=== PATIENT | female | born 1935 | race Two or more races ===

== ENCOUNTER 2016-12-12 08:56 | Emergency (ER) | payer MEDICARE, MEDICAID ==
[~2016-12-12] VITALS: Ht 165.1 cm; Wt 68.0 kg
[~2016-12-12 08:56] MED LIST: FLUO20CA19; PHEN100C70; PLAVIX; RAMI2.5T; SIMV5TAB38
[2016-12-12] MEDS ORDERED: LIDOCAINE 1% HCL (LOCAL ANESTH.) INJ 20ML MDV ONE (09:45)
[2016-12-12 10:09] LABS: Basophils # (auto) 0.1 uL; Basophils % (auto) 0.9 % (0.0-2.0); DEFINITIVE VIEW TRANSMISSION; Eosinophils # (auto) 0 uL; Eosinophils % (auto) 0.2 % (0.0-7.0); Hematocrit 43.5 % (36.0-46.0); Hemoglobin 14.4 g/dL (12.2-16.2); Lymphocytes # (auto) 0.9 uL; Lymphocytes % (auto) 7.7 % (10.0-50.0); Mean Corpuscular Hemoglobin 26.9 pg (28.0-32.0); Mean Corpuscular Hgb Conc. 33.1 g/dL (32.0-36.0); Mean Corpuscular Volume 81.4 fL (80.0-100.0); Mean Platelet Volume 10.1 fL (7.4-10.4); Monocytes # (auto) 0.8 uL; Monocytes % (auto) 7.4 % (0.0-12.0); Neutrophils # (auto) 9.6 uL; Neutrophils % (auto) 83.8 % (37.0-80.0); Platelet Count (auto) 279 10^3/uL (140-450); Red Cell Distribution Width 13.8 % (11.6-16.0); White Blood Cell 11.5 10^3/uL (4.4-10.8)
[2016-12-12] MEDS ORDERED: BACITRACIN TOP OINT 1 UD PKG TOP ONE (10:15)
[2016-12-12] MEDS ORDERED: LIDOCAINE 2%HCL (LOCAL ANESTH.) INJ 20ML MDV ID ONE (10:15)
[2016-12-12] MEDS ORDERED: TETANUS-DIPTH-ACEL PERTUSSIS 0.5ML SYRG IM ONE (10:15)
[2016-12-12 10:30] LABS: Albumin 3.2 g/dL (3.4-5.0); BUN/Creatinine Ratio 12.9; Bilirubin, Total 0.8 mg/dL (0.2-1.0); Calcium 8.8 mg/dL (8.5-10.1); Total Protein 7.5 g/dL (6.4-8.2)
[2016-12-12] MEDS ORDERED: cefTRIAXone 1GM/50ML D5W 50 ML IV ONE (15:15)
[2016-12-12] MEDS ORDERED: LEVOFLOXACIN 500 MG TAB PO ONE (15:45)
[2016-12-12 16:43] VITALS: BP 127/89
== END 2016-12-12 17:20 | disposition home or self-care (01) ==
LOC: EDUNIT# 08:56 → ER 09:01
DX: S01.81XA Laceration without foreign body of other part of head, initial encounter (principal); S01.111A Laceration without foreign body of right eyelid and periocular area, initial encounter; I10 Essential (primary) hypertension; E46 Unspecified protein-calorie malnutrition; Z68.25 Body mass index [BMI] 25.0-25.9, adult; E78.5 Hyperlipidemia, unspecified; N39.0 Urinary tract infection, site not specified; Z23 Encounter for immunization; Z11.9 Encounter for screening for infectious and parasitic diseases, unspecified; Z79.899 Other long term (current) drug therapy; Z86.73 Personal history of transient ischemic attack (TIA), and cerebral infarction without residual deficits; W19.XXXA Unspecified fall, initial encounter; Y99.8 Other external cause status; Y93.89 Activity, other specified; Y92.009 Unspecified place in unspecified non-institutional (private) residence as the place of occurrence of the external cause
CPT/HCPCS: 12013; 36415; 70450; 80053; 81002; 84484; 85025; 90471; 90715; 93005; 99285; J0696; J2001

== ENCOUNTER 2017-09-30 15:03 | Inpatient (IN) | payer MEDICARE, MEDICAID ==
[~2017-09-30] VITALS: Ht 160 cm; Wt 52.3 kg
[2017-09-30] MEDS ORDERED: SODIUM CHLORIDE 0.9% 1,000 ML IV ONE (16:26)
[2017-09-30] MEDS ORDERED: PIPERACILLIN-TAZOB 3.375GM 50 ML IV ONE (16:30)
[2017-09-30 17:09] LABS: Albumin 3.3 g/dL (3.4-5.0); BUN/Creatinine Ratio 15.5; Calcium 8.8 mg/dL (8.5-10.1); Potassium 4.5 mmol/L (3.5-5.1)
[2017-09-30 17:11] LABS: Bilirubin, Total 0.3 mg/dL (0.2-1.0); Total Protein 7.8 g/dL (6.4-8.2)
[2017-09-30 17:40] LABS: Lactic Acid w/Reflex 2.6 mmol/L (0.4-2.0)
[2017-09-30 18:01] LABS: Basophils # (auto) 0.1 uL; Basophils % (auto) 0.8 % (0.0-2.0); Eosinophils # (auto) 0.1 uL; Eosinophils % (auto) 1.1 % (0.0-7.0); Hematocrit 38.9 % (36.0-46.0); Hemoglobin 12.5 g/dL (12.2-16.2); Lymphocytes # (auto) 2.8 uL; Mean Corpuscular Hemoglobin 26.1 pg (28.0-32.0); Mean Corpuscular Hgb Conc. 32.3 g/dL (32.0-36.0); Monocytes # (auto) 0.9 uL; Monocytes % (auto) 9.4 % (0.0-12.0); Neutrophils # (auto) 5.6 uL; Neutrophils % (auto) 58.7 % (37.0-80.0); Nucleated Red Blood Cells % 0.1 %; Platelet Count (auto) 357 10^3/uL (140-450); Red Cell Distribution Width 14.8 % (11.8-14.3); White Blood Cell 9.5 10^3/uL (4.4-10.8)
[2017-09-30 18:31] LABS: Partial Thromboplastin Time 22.7 sec (22.64-33.71)
[2017-09-30 18:38] LABS: INR 0.98 (0.9-1.15); Prothrombin Time 10.7 sec (9.37-12.3)
[2017-09-30] MEDS ORDERED: HYDROcodone-ACET 5/325MG TAB PO PRN (22:15)
[2017-09-30] MEDS ORDERED: ONDANSETRON HCL 4 MG/2 ML VIAL IV PRN (22:15)
[2017-09-30] MEDS ORDERED: TEMAZEPAM 15 MG CAP PO PRN (22:15)
[2017-09-30] MEDS ORDERED: ALBUTEROL SULF 2.5 MG/0.5ML(0.5%) NEB SOLN NEB PRN (22:15)
[2017-09-30] MEDS ORDERED: DEXTROSE (50%) 50ML SYRG IV PRN (22:15)
[2017-09-30] MEDS ORDERED: cloNIDine HCL 0.1 MG TAB PO PRN (22:15)
[2017-09-30] MEDS ORDERED: FUROSEMIDE 40 MG/4 ML VIAL IV ONE (22:15)
[2017-09-30] MEDS ORDERED: ACETAMINOPHEN 325 MG TAB PO PRN (22:15)
[2017-09-30] MEDS ORDERED: MORPHINE SULFATE 4 MG/ML SYR/VIAL IV PRN (22:15)
[2017-10-01] VITALS (9 sets, daily range): BP systolic 101–131; BP diastolic 53–59
[2017-10-01] MEDS: NITROGLYCERIN 0.4 MG SL TAB SL PRN ×3 (02:42→02:55)
[2017-10-01] MEDS ORDERED: MORPHINE SULF INJ 2 MG/ML SYRINGE 1ML ONE (03:10)
[2017-10-01] MEDS: InsuLIN REG 1unit/0.01ml Soln (100units/ml) SC SCH ×4 (06:00→18:43)
[2017-10-01] MEDS: ACCU-CHEK COMFORT CURVE STRIP VI SCH ×4 (06:01→18:00)
[2017-10-01 06:21] LABS: Basophils # (auto) 0.1 uL; Eosinophils # (auto) 0.1 uL; Eosinophils % (auto) 0.8 % (0.0-7.0); Neutrophils # (auto) 7.6 uL
[2017-10-01 06:24] LABS: Basophils % (auto) 1.2 % (0.0-2.0); Hematocrit 39.5 % (36.0-46.0); Hemoglobin 12.8 g/dL (12.2-16.2); Lymphocytes # (auto) 1.2 uL; Lymphocytes % (auto) 12.5 % (10.0-50.0); Mean Corpuscular Hemoglobin 26.5 pg (28.0-32.0); Mean Corpuscular Hgb Conc. 32.5 g/dL (32.0-36.0); Mean Corpuscular Volume 81.4 fL (80.0-100.0); Monocytes # (auto) 0.8 uL; Monocytes % (auto) 8.1 % (0.0-12.0); Neutrophils % (auto) 77.4 % (37.0-80.0); Platelet Count (auto) 353 10^3/uL (140-450); Red Blood Cells 4.85 10^6/uL (4.0-5.20); Red Cell Distribution Width 14.3 % (11.8-14.3); White Blood Cell 9.9 10^3/uL (4.4-10.8)
[2017-10-01 06:45] LABS: Albumin 3.1 g/dL (3.4-5.0); BUN/Creatinine Ratio 15.5; Bilirubin, Total 0.6 mg/dL (0.2-1.0); Calcium 8.3 mg/dL (8.5-10.1); Potassium 3.8 mmol/L (3.5-5.1); Total Protein 7.3 g/dL (6.4-8.2)
[2017-10-01] MEDS: cefTRIAXone 1GM/10ml IVPUSH 10 ML IV SCH (09:44)
[2017-10-01] MEDS: CLOPIDOGREL BISULFATE 75 MG TAB PO SCH (09:44)
[2017-10-01] MEDS: FAMOTIDINE 20 MG TAB PO SCH ×2 (09:45→21:55)
[2017-10-01] MEDS: LISINOPRIL 10 MG TAB PO SCH (09:46)
[2017-10-01] MEDS: CARVEDILOL 3.125 MG TAB PO SCH ×2 (09:48→21:55)
[2017-10-01] MEDS ORDERED: ENOXAPARIN SOD 40 MG/0.4 ML SYRINGE SC SCH (10:00)
[2017-10-01] MEDS ORDERED: FUROSEMIDE 20 MG TAB PO SCH (10:00)
[2017-10-01] MEDS ORDERED: FUROSEMIDE 20 MG/2 ML VIAL IV ONE (13:00)
[2017-10-01] MEDS ORDERED: POTASSIUM CHL 10% (20 MEQ/15ML) 15ml ORAL SOLN PO ONE (13:00)
[2017-10-01] MEDS ORDERED: MORPHINE SULF INJ 2 MG/ML SYRINGE 1ML IV PRN (13:15)
[2017-10-01] MEDS: ATORVASTATIN 20 MG TAB PO SCH (21:55)
[2017-10-02] MEDS: ACCU-CHEK COMFORT CURVE STRIP VI SCH ×5 (00:51→23:59)
[2017-10-02 04:56] VITALS: BP 110/88
[2017-10-02] MEDS: InsuLIN REG 1unit/0.01ml Soln (100units/ml) SC SCH ×5 (06:00→23:59)
[2017-10-02 06:25] LABS: BUN/Creatinine Ratio 21.8; Calcium 8.8 mg/dL (8.5-10.1)
[2017-10-02 08:36] VITALS: BP 120/57
[2017-10-02] MEDS: FAMOTIDINE 20 MG TAB PO SCH ×2 (09:27→22:10)
[2017-10-02] MEDS: CARVEDILOL 3.125 MG TAB PO SCH ×2 (09:28→22:00)
[2017-10-02] MEDS: LISINOPRIL 10 MG TAB PO SCH (09:28)
[2017-10-02] MEDS: CLOPIDOGREL BISULFATE 75 MG TAB PO SCH (09:29)
[2017-10-02] MEDS: POTASSIUM CHL 10% (20 MEQ/15ML) 15ml ORAL SOLN PO SCH (09:30)
[2017-10-02] MEDS: cefTRIAXone 1GM/10ml IVPUSH 10 ML IV SCH (09:31)
[2017-10-02] MEDS ORDERED: FUROSEMIDE 20 MG/2 ML VIAL IV SCH (10:00)
[2017-10-02 12:28] VITALS: BP 117/65
[2017-10-02 17:19] VITALS: BP 124/64
[2017-10-02 20:00] VITALS: BP 127/76
[2017-10-02] MEDS: ATORVASTATIN 20 MG TAB PO SCH (22:10)
[2017-10-02] MEDS: ASCORBIC ACID 500 MG TAB PO SCH (22:10)
[2017-10-02 22:22] VITALS: BP 127/76
[2017-10-03] VITALS (7 sets, daily range): BP systolic 107–132; BP diastolic 50–75
[2017-10-03] MEDS: InsuLIN REG 1unit/0.01ml Soln (100units/ml) SC SCH ×3 (06:00→17:34)
[2017-10-03] MEDS: ACCU-CHEK COMFORT CURVE STRIP VI SCH ×3 (06:26→17:34)
[2017-10-03] MEDS: cefTRIAXone 1GM/10ml IVPUSH 10 ML IV SCH (08:51)
[2017-10-03] MEDS: FAMOTIDINE 20 MG TAB PO SCH ×2 (08:51→22:20)
[2017-10-03] MEDS: CLOPIDOGREL BISULFATE 75 MG TAB PO SCH (08:51)
[2017-10-03] MEDS: ASCORBIC ACID 500 MG TAB PO SCH ×2 (08:52→22:20)
[2017-10-03] MEDS: MULTIPLE VITAMINS W/ MINERALS TAB PO SCH (08:52)
[2017-10-03] MEDS: LISINOPRIL 10 MG TAB PO SCH (08:52)
[2017-10-03] MEDS: FUROSEMIDE 40 MG TAB PO SCH (08:53)
[2017-10-03] MEDS: CARVEDILOL 3.125 MG TAB PO SCH ×2 (08:54→22:00)
[2017-10-03] MEDS: POTASSIUM CHL 10% (20 MEQ/15ML) 15ml ORAL SOLN PO SCH (08:55)
[2017-10-03] MEDS: ATORVASTATIN 20 MG TAB PO SCH (22:20)
[2017-10-04] VITALS (7 sets, daily range): BP systolic 107–140; BP diastolic 60–79
[2017-10-04] MEDS: InsuLIN REG 1unit/0.01ml Soln (100units/ml) SC SCH ×4 (06:00→19:00)
[2017-10-04] MEDS: ACCU-CHEK COMFORT CURVE STRIP VI SCH ×4 (06:00→18:00)
[2017-10-04 07:02] LABS: INR 0.96 (0.9-1.15); Partial Thromboplastin Time 28.1 sec (22.64-33.71); Prothrombin Time 10.5 sec (9.37-12.3)
[2017-10-04] MEDS: cefTRIAXone 1GM/10ml IVPUSH 10 ML IV SCH (09:00)
[2017-10-04] MEDS: MULTIPLE VITAMINS W/ MINERALS TAB PO SCH (10:00)
[2017-10-04] MEDS: POTASSIUM CHL 10% (20 MEQ/15ML) 15ml ORAL SOLN PO SCH (10:00)
[2017-10-04] MEDS: FAMOTIDINE 20 MG TAB PO SCH ×2 (10:00→22:19)
[2017-10-04] MEDS: ASCORBIC ACID 500 MG TAB PO SCH ×2 (10:00→22:18)
[2017-10-04] MEDS: CLOPIDOGREL BISULFATE 75 MG TAB PO SCH (10:00)
[2017-10-04] MEDS: LISINOPRIL 10 MG TAB PO SCH (10:00)
[2017-10-04] MEDS: CARVEDILOL 3.125 MG TAB PO SCH ×2 (10:00→22:20)
[2017-10-04] MEDS: FUROSEMIDE 40 MG TAB PO SCH (10:00)
[2017-10-04] MEDS ORDERED: IOHEXOL 350 MG/ML 100ML IJ ONE (10:30)
[2017-10-04] MEDS ORDERED: LIDOCAINE 2%HCL (LOCAL ANESTH.) INJ 20ML MDV ONE (10:30)
[2017-10-04] MEDS ORDERED: ANGIOMAX 250 MG VIAL IV ONE (11:04)
[2017-10-04] MEDS ORDERED: MIDAZOLAM HCL 1MG/1ML-2 ML VIAL ONE (11:05)
[2017-10-04] MEDS ORDERED: fentaNYL CITRATE 100 MCG/2 ML VL ONE (11:05)
[2017-10-04] MEDS ORDERED: IODIXANOL 320MG/ML 100ML BTL IV ONE (11:09)
[2017-10-04] MEDS ORDERED: diphenhdrAMINE HCL 50 MG/1 ML VL ONE (12:28)
[2017-10-04] MEDS ORDERED: NALOXONE HCL 0.4 MG/ML VIAL ONE (12:52)
[2017-10-04] MEDS ORDERED: FLUMAZENIL 0.1 MG/ML INJ 10ML MDV IV ONE (12:53)
[2017-10-04] MEDS: ATORVASTATIN 20 MG TAB PO SCH (22:18)
[2017-10-05] VITALS (7 sets, daily range): BP systolic 112–142; BP diastolic 54–83
[2017-10-05] MEDS: ACCU-CHEK COMFORT CURVE STRIP VI SCH ×3 (06:00→11:51)
[2017-10-05] MEDS: InsuLIN REG 1unit/0.01ml Soln (100units/ml) SC SCH ×3 (06:00→11:51)
[2017-10-05] MEDS: MULTIPLE VITAMINS W/ MINERALS TAB PO SCH (09:34)
[2017-10-05] MEDS: cefTRIAXone 1GM/10ml IVPUSH 10 ML IV SCH (09:34)
[2017-10-05] MEDS: ASCORBIC ACID 500 MG TAB PO SCH ×2 (09:35→22:24)
[2017-10-05] MEDS: CLOPIDOGREL BISULFATE 75 MG TAB PO SCH (09:35)
[2017-10-05] MEDS: FUROSEMIDE 40 MG TAB PO SCH (09:35)
[2017-10-05] MEDS: FAMOTIDINE 20 MG TAB PO SCH ×2 (09:35→22:24)
[2017-10-05] MEDS: POTASSIUM CHL 10% (20 MEQ/15ML) 15ml ORAL SOLN PO SCH (09:35)
[2017-10-05] MEDS: LISINOPRIL 10 MG TAB PO SCH (09:36)
[2017-10-05] MEDS: CARVEDILOL 3.125 MG TAB PO SCH ×2 (09:36→22:32)
[2017-10-05] MEDS: ATORVASTATIN 20 MG TAB PO SCH (22:24)
[2017-10-06 06:02] VITALS: BP 119/58
[2017-10-06 06:57] LABS: Basophils # (auto) 0.1 uL; Eosinophils # (auto) 0.3 uL; Hemoglobin 12.3 g/dL (12.2-16.2); Lymphocytes # (auto) 1.9 uL; Neutrophils % (auto) 57.1 % (37.0-80.0)
[2017-10-06 07:00] LABS: Basophils % (auto) 0.8 % (0.0-2.0); Eosinophils % (auto) 4.3 % (0.0-7.0); Hematocrit 37.7 % (36.0-46.0); Lymphocytes % (auto) 26.1 % (10.0-50.0); Mean Corpuscular Hemoglobin 26.7 pg (28.0-32.0); Mean Corpuscular Hgb Conc. 32.7 g/dL (32.0-36.0); Mean Corpuscular Volume 81.5 fL (80.0-100.0); Monocytes # (auto) 0.9 uL; Monocytes % (auto) 11.7 % (0.0-12.0); Neutrophils # (auto) 4.3 uL; Platelet Count (auto) 351 10^3/uL (140-450); Red Blood Cells 4.62 10^6/uL (4.0-5.20); Red Cell Distribution Width 14.4 % (11.8-14.3); White Blood Cell 7.5 10^3/uL (4.4-10.8)
[2017-10-06 07:45] LABS: Potassium 4.3 mmol/L (3.5-5.1)
[2017-10-06 07:46] LABS: BUN/Creatinine Ratio 22.9; Calcium 8.6 mg/dL (8.5-10.1)
[2017-10-06 07:58] VITALS: BP 109/51
[2017-10-06] MEDS ORDERED: LISINOPRIL 5 MG TAB PO SCH (10:00)
[2017-10-06] MEDS: CLOPIDOGREL BISULFATE 75 MG TAB PO SCH (10:17)
[2017-10-06] MEDS: CARVEDILOL 3.125 MG TAB PO SCH (10:17)
[2017-10-06] MEDS: MULTIPLE VITAMINS W/ MINERALS TAB PO SCH (10:18)
[2017-10-06] MEDS: ASCORBIC ACID 500 MG TAB PO SCH (10:18)
[2017-10-06] MEDS: FAMOTIDINE 20 MG TAB PO SCH (10:18)
[2017-10-06] MEDS: FUROSEMIDE 40 MG TAB PO SCH (10:18)
[2017-10-06] MEDS: POTASSIUM CHL 10% (20 MEQ/15ML) 15ml ORAL SOLN PO SCH (10:18)
[2017-10-06] MEDS: cefTRIAXone 1GM/10ml IVPUSH 10 ML IV SCH (10:19)
[2017-10-06 11:51] VITALS: BP 103/68
[2017-10-06 16:52] VITALS: BP 134/61
[2017-10-07] MEDS ORDERED: ASPirin 81 mg TAB PO SCH (10:00)
== END 2017-10-06 18:30 | disposition home or self-care (01) | DRG 175 ==
LOC: EDUNIT# 15:03 → EDBD 15:03 → ER 15:03 → TELE 15:04 → TELE-EAST 22:30 → EAST 23:22 → TELE-EAST 23:42 → EAST 10-01 23:06
PROVIDERS: ADMIT Nurse Practitioner; ATTEND Internal Medicine
PROC: 027034Z Dilation of Coronary Artery, One Artery with Drug-eluting Intraluminal Device, Percutaneous Approach (ICD-10-PCS; principal; 2017-10-04)
PROC: 4A023N7 Measurement of Cardiac Sampling and Pressure, Left Heart, Percutaneous Approach (ICD-10-PCS; 2017-10-04)
PROC: B2111ZZ Fluoroscopy of Multiple Coronary Arteries using Low Osmolar Contrast (ICD-10-PCS; 2017-10-04)
PROC: B2151ZZ Fluoroscopy of Left Heart using Low Osmolar Contrast (ICD-10-PCS; 2017-10-04)
PROC: 02703ZZ Dilation of Coronary Artery, One Artery, Percutaneous Approach (ICD-10-PCS; 2017-10-04)
DX: T82.855A Stenosis of coronary artery stent, initial encounter (principal); I50.43 Acute on chronic combined systolic (congestive) and diastolic (congestive) heart failure; E46 Unspecified protein-calorie malnutrition; R06.03 Acute respiratory distress; I42.0 Dilated cardiomyopathy; E11.22 Type 2 diabetes mellitus with diabetic chronic kidney disease; F03.90 Unspecified dementia, unspecified severity, without behavioral disturbance, psychotic disturbance, mood disturbance, and anxiety; I13.0 Hypertensive heart and chronic kidney disease with heart failure and stage 1 through stage 4 chronic kidney disease, or unspecified chronic kidney disease; N18.9 Chronic kidney disease, unspecified; E78.5 Hyperlipidemia, unspecified; J44.9 Chronic obstructive pulmonary disease, unspecified; Y83.8 Other surgical procedures as the cause of abnormal reaction of the patient, or of later complication, without mention of misadventure at the time of the procedure; E11.9 Type 2 diabetes mellitus without complications; I25.110 Atherosclerotic heart disease of native coronary artery with unstable angina pectoris; Z99.81 Dependence on supplemental oxygen; Y92.89 Other specified places as the place of occurrence of the external cause; Z86.73 Personal history of transient ischemic attack (TIA), and cerebral infarction without residual deficits; Z95.5 Presence of coronary angioplasty implant and graft; Z83.3 Family history of diabetes mellitus; Z93.1 Gastrostomy status; Z68.20 Body mass index [BMI] 20.0-20.9, adult; Z82.49 Family history of ischemic heart disease and other diseases of the circulatory system
CPT/HCPCS: 36415; 71045; 80048; 80053; 82962; 83605; 83880; 84484; 85025; 85610; 85730; 86850; 86900; 86901; 87040; 92920; 92928; 93005; 93306; 93458; 96365; 96375; 97110; 97163; 97530; 99152; C1874; J2250; J2543; Q9967

== ENCOUNTER 2018-07-17 16:52 | Inpatient (IN) | payer MEDICARE, MEDICAID ==
[~2018-07-17] VITALS: Ht 165.1 cm; Wt 41.3 kg
[~2018-07-17 16:52] MED LIST changes: -PLAVIX; +PLAVIX PO
[2018-07-17] MEDS ORDERED: SODIUM CHLORIDE 0.9% 1,000 ML IV ONE (16:57)
[2018-07-17 18:37] LABS: Urine Bacteria MOD /hpf (None Seen); Urine Blood Negative /uL (Negative); Urine Hyaline Cast FEW /lpf (0 - 2); Urine Mucus FEW (None Seen); Urine Specific Gravity 1.014 (1.001-1.035); Urine WBC 8 /hpf (0 - 5)
[2018-07-17 19:05] LABS: Basophils # (auto) 0.1 uL; Basophils % (auto) 1.3 % (0.0-2.0); Eosinophils # (auto) 0.1 uL; Eosinophils % (auto) 1.5 % (0.0-7.0); Hematocrit 36.4 % (36.0-46.0); Hemoglobin 11.7 g/dL (12.2-16.2); Lymphocytes # (auto) 1.5 uL; Mean Corpuscular Hemoglobin 25.7 pg (28.0-32.0); Mean Corpuscular Hgb Conc. 32.1 g/dL (32.0-36.0); Monocytes # (auto) 0.5 uL; Monocytes % (auto) 9.4 % (0.0-12.0); Neutrophils # (auto) 3.6 uL; Neutrophils % (auto) 61.8 % (37.0-80.0); Platelet Count (auto) 252 10^3/uL (140-450); Red Blood Cells 4.55 10^6/uL (4.0-5.20); Red Cell Distribution Width 16.3 % (11.8-14.3); White Blood Cell 5.8 10^3/uL (4.4-10.8)
[2018-07-17 19:31] LABS: INR 0.97 (0.9-1.15); Partial Thromboplastin Time 26.2 sec (23.78-33.04); Prothrombin Time 10.4 sec (9.27-12.13)
[2018-07-17 19:37] LABS: Alanine Aminotransferase 12 U/L (13-56); Albumin 2.9 g/dL (3.4-5.0); Anion Gap 7 (5-15); Aspartate Aminotransferase 13 U/L (15-37); Blood Urea Nitrogen 17 mg/dL (7-18); Calcium 8.5 mg/dL (8.5-10.1); Carbon Dioxide 25 mmol/L (21-32); Chloride 108 mmol/L (98-107); Glucose 89 mg/dL (74-106); Magnesium 2.2 mg/dL (1.6-2.6); Potassium 3.9 mmol/L (3.5-5.1); Sodium 140 mmol/L (136-145)
[2018-07-17 19:42] LABS: Alkaline Phosphatase 48 U/L (45-117); Bilirubin, Total 0.4 mg/dL (0.2-1.0); GFR African American 64 mL/min; GFR Non-African American 53 mL/min; Total Protein 6.9 g/dL (6.4-8.2)
[2018-07-17] MEDS ORDERED: MORPHINE SULFATE 4 MG/ML SYR/VIAL IV PRN (20:45)
[2018-07-17] MEDS ORDERED: NITROGLYCERIN 0.4 MG SL TAB SL PRN (20:45)
[2018-07-17] MEDS ORDERED: HYDROcodone-ACET 5/325MG TAB PO PRN (20:45)
[2018-07-17] MEDS ORDERED: cefTRIAXone 1GM/50ML D5W 50 ML IV ONE (20:45)
[2018-07-17] MEDS ORDERED: ONDANSETRON HCL 4 MG/2 ML VIAL IV PRN (20:45)
[2018-07-17] MEDS ORDERED: ACETAMINOPHEN 325 MG TAB PO PRN (20:45)
[2018-07-17] MEDS: FAMOTIDINE 20 MG TAB PO SCH (21:25)
[2018-07-17] MEDS: ATORVASTATIN 20 MG TAB PO SCH (21:25)
[2018-07-18 07:49] LABS: Basophils # (auto) 0.1 uL; Eosinophils # (auto) 0.1 uL; Lymphocytes # (auto) 1.5 uL; Monocytes # (auto) 0.6 uL; White Blood Cell 6.5 10^3/uL (4.4-10.8)
[2018-07-18 07:51] LABS: Eosinophils % (auto) 1.8 % (0.0-7.0); Hematocrit 36.3 % (36.0-46.0); Hemoglobin 11.7 g/dL (12.2-16.2); Lymphocytes % (auto) 23.4 % (10.0-50.0); Mean Corpuscular Hgb Conc. 32.3 g/dL (32.0-36.0); Mean Corpuscular Volume 80.6 fL (80.0-100.0); Monocytes % (auto) 8.8 % (0.0-12.0); Neutrophils # (auto) 4.2 uL; Platelet Count (auto) 257 10^3/uL (140-450); Red Cell Distribution Width 16.4 % (11.8-14.3)
[2018-07-18 08:22] LABS: Albumin 2.7 g/dL (3.4-5.0); Calcium 8.3 mg/dL (8.5-10.1); Potassium 3.8 mmol/L (3.5-5.1)
[2018-07-18 08:25] LABS: BUN/Creatinine Ratio 21.1; Bilirubin, Total 0.3 mg/dL (0.2-1.0); Total Protein 6.7 g/dL (6.4-8.2)
[2018-07-18 08:50] VITALS: BP 163/101
[2018-07-18 09:00] VITALS: BP 163/101
[2018-07-18] MEDS: cefTRIAXone 1GM/50ML D5W 50 ML IV SCH (09:00)
[2018-07-18] MEDS ORDERED: RAMIPRIL 2.5 MG CAP PO SCH (10:00)
[2018-07-18] MEDS: PHENYTOIN 100 MG/4 ML SUSP PO SCH (10:27)
[2018-07-18] MEDS: CLOPIDOGREL BISULFATE 75 MG TAB PO SCH (10:28)
[2018-07-18] MEDS: ASPirin 81 mg TAB PO SCH (10:28)
[2018-07-18] MEDS: FLUoxetine HCL 20 MG CAP PO SCH (10:28)
[2018-07-18] MEDS: FAMOTIDINE 20 MG TAB PO SCH ×2 (10:29→22:07)
[2018-07-18] MEDS: ENOXAPARIN SOD 40 MG/0.4 ML SYRINGE SC SCH (10:30)
[2018-07-18 13:00] VITALS: BP 150/70
[2018-07-18] MEDS ORDERED: POTA10TA51 PO (15:11)
[2018-07-18] MEDS ORDERED: LISI-275 PO (15:11)
[2018-07-18 17:00] VITALS: BP 179/76
[2018-07-18] MEDS ORDERED: LOSARTAN POTASSIUM 50 MG TAB PO ONE (19:15)
[2018-07-18 22:00] VITALS: BP 159/86
[2018-07-18] MEDS: CARVEDILOL 3.125 MG TAB PO SCH (22:00)
[2018-07-18] MEDS: RAMIPRIL 2.5 MG CAP PO SCH (22:09)
[2018-07-18] MEDS: ATORVASTATIN 20 MG TAB PO SCH (22:09)
[2018-07-18] MEDS: TEMAZEPAM 15 MG CAP PO PRN (22:11)
[2018-07-19] MEDS ORDERED: diphenhdrAMINE HCL 25 MG CAP PO ONE (01:20)
[2018-07-19] MEDS: LORazepam 0.5 MG TAB PO PRN ×2 (01:45→14:53)
[2018-07-19 04:51] VITALS: BP 165/76
[2018-07-19 05:59] LABS: Eosinophils # (auto) 0.2 uL; Eosinophils % (auto) 2.7 % (0.0-7.0); Lymphocytes # (auto) 1.8 uL; Mean Corpuscular Volume 79.4 fL (80.0-100.0)
[2018-07-19 06:03] LABS: Basophils # (auto) 0 uL; Basophils % (auto) 0.3 % (0.0-2.0); Hematocrit 38.9 % (36.0-46.0); Hemoglobin 12.8 g/dL (12.2-16.2); Lymphocytes % (auto) 20.6 % (10.0-50.0); Mean Corpuscular Hgb Conc. 32.8 g/dL (32.0-36.0); Monocytes % (auto) 10.9 % (0.0-12.0); Neutrophils # (auto) 5.8 uL; Neutrophils % (auto) 65.5 % (37.0-80.0); Platelet Count (auto) 291 10^3/uL (140-450); Red Cell Distribution Width 16.1 % (11.8-14.3); White Blood Cell 8.9 10^3/uL (4.4-10.8)
[2018-07-19 06:18] LABS: Mean Corpuscular Hemoglobin 26.2 pg (28.0-32.0)
[2018-07-19 06:20] LABS: Calcium 8.6 mg/dL (8.5-10.1); Potassium 3.7 mmol/L (3.5-5.1)
[2018-07-19 06:22] LABS: BUN/Creatinine Ratio 18.4
[2018-07-19 09:00] VITALS: BP 137/71
[2018-07-19] MEDS: cefTRIAXone 1GM/50ML D5W 50 ML IV SCH (09:00)
[2018-07-19] MEDS: RAMIPRIL 2.5 MG CAP PO SCH ×2 (10:00→23:00)
[2018-07-19] MEDS: ASPirin 81 mg TAB PO SCH (10:00)
[2018-07-19] MEDS: CARVEDILOL 3.125 MG TAB PO SCH ×2 (10:00→23:00)
[2018-07-19] MEDS: PHENYTOIN 100 MG/4 ML SUSP PO SCH (10:00)
[2018-07-19] MEDS: amLODIPine BESYLATE 5 MG TAB PO SCH (10:50)
[2018-07-19] MEDS: FAMOTIDINE 20 MG TAB PO SCH ×2 (10:51→23:00)
[2018-07-19] MEDS: CLOPIDOGREL BISULFATE 75 MG TAB PO SCH (10:51)
[2018-07-19] MEDS: FLUoxetine HCL 20 MG CAP PO SCH (10:51)
[2018-07-19] MEDS: ENOXAPARIN SOD 40 MG/0.4 ML SYRINGE SC SCH (10:52)
[2018-07-19 13:00] VITALS: BP 158/70
[2018-07-19 17:00] VITALS: BP 136/56
[2018-07-19 20:36] VITALS: BP 114/46
[2018-07-19] MEDS: ATORVASTATIN 20 MG TAB PO SCH (23:00)
[2018-07-20 04:52] VITALS: BP 110/55
[2018-07-20 05:41] LABS: Basophils # (auto) 0.1 uL; Eosinophils # (auto) 0.4 uL; Hematocrit 36.5 % (36.0-46.0); Hemoglobin 11.9 g/dL (12.2-16.2); Lymphocytes # (auto) 1.8 uL; Mean Corpuscular Hgb Conc. 32.6 g/dL (32.0-36.0); Monocytes # (auto) 0.9 uL; Red Cell Distribution Width 16.5 % (11.8-14.3); White Blood Cell 9.1 10^3/uL (4.4-10.8)
[2018-07-20 05:45] LABS: Basophils % (auto) 0.8 % (0.0-2.0); Eosinophils % (auto) 4.2 % (0.0-7.0); Lymphocytes % (auto) 19.9 % (10.0-50.0); Mean Corpuscular Volume 79.4 fL (80.0-100.0); Monocytes % (auto) 9.9 % (0.0-12.0); Neutrophils # (auto) 5.9 uL; Neutrophils % (auto) 65.2 % (37.0-80.0)
[2018-07-20 05:47] LABS: Platelet Count (auto) 281 10^3/uL (140-450)
[2018-07-20 06:00] LABS: BUN/Creatinine Ratio 17.9; Calcium 8.4 mg/dL (8.5-10.1); Potassium 3.8 mmol/L (3.5-5.1)
[2018-07-20] MEDS: cefTRIAXone 1GM/50ML D5W 50 ML IV SCH (08:41)
[2018-07-20 09:01] VITALS: BP 121/46
[2018-07-20] MEDS: FAMOTIDINE 20 MG TAB PO SCH ×2 (11:35→22:10)
[2018-07-20] MEDS: ASPirin 81 mg TAB PO SCH (11:35)
[2018-07-20] MEDS: CLOPIDOGREL BISULFATE 75 MG TAB PO SCH (11:35)
[2018-07-20] MEDS: CARVEDILOL 3.125 MG TAB PO SCH ×2 (11:37→22:09)
[2018-07-20] MEDS: amLODIPine BESYLATE 5 MG TAB PO SCH (11:38)
[2018-07-20] MEDS: FLUoxetine HCL 20 MG CAP PO SCH (11:38)
[2018-07-20] MEDS: RAMIPRIL 2.5 MG CAP PO SCH ×2 (11:38→22:10)
[2018-07-20] MEDS: PHENYTOIN 100 MG/4 ML SUSP PO SCH (11:38)
[2018-07-20] MEDS: ENOXAPARIN SOD 40 MG/0.4 ML SYRINGE SC SCH (11:39)
[2018-07-20] MEDS ORDERED: ISOSORBIDE MONONITRATE 60 MG TAB PO SCH (12:00)
[2018-07-20] MEDS ORDERED: PATIENTS OWN MEDICATION PO SCH (12:00)
[2018-07-20 13:00] VITALS: BP 64/30
[2018-07-20] MEDS ORDERED: SODIUM CHLORIDE 0.9% 500 ML IV ONE (14:45)
[2018-07-20 17:11] VITALS: BP 95/46
[2018-07-20 21:39] VITALS: BP 126/45
[2018-07-20] MEDS ORDERED: RANOLAZINE ER 500 MG TAB PO SCH (22:00)
[2018-07-20] MEDS: TEMAZEPAM 15 MG CAP PO PRN (22:10)
[2018-07-20] MEDS: ATORVASTATIN 20 MG TAB PO SCH (22:10)
[2018-07-21 04:42] VITALS: BP 117/55
[2018-07-21 06:26] LABS: Eosinophils # (auto) 0.4 uL; Monocytes # (auto) 0.8 uL; Neutrophils # (auto) 3.6 uL; Red Cell Distribution Width 16.3 % (11.8-14.3)
[2018-07-21 06:28] LABS: Basophils # (auto) 0.1 uL; Eosinophils % (auto) 6.2 % (0.0-7.0); Hemoglobin 10.9 g/dL (12.2-16.2); Lymphocytes # (auto) 2.1 uL; Lymphocytes % (auto) 29.4 % (10.0-50.0); Mean Corpuscular Hgb Conc. 32.1 g/dL (32.0-36.0); Mean Corpuscular Volume 80.4 fL (80.0-100.0); Monocytes % (auto) 11.9 % (0.0-12.0); Neutrophils % (auto) 51.5 % (37.0-80.0); Nucleated Red Blood Cells % 0.1 %; Platelet Count (auto) 272 10^3/uL (140-450); Red Blood Cells 4.22 10^6/uL (4.0-5.20)
[2018-07-21 06:31] LABS: Mean Corpuscular Hemoglobin 25.9 pg (28.0-32.0)
[2018-07-21 06:45] LABS: Calcium 8.1 mg/dL (8.5-10.1); Potassium 3.8 mmol/L (3.5-5.1)
[2018-07-21 06:46] LABS: BUN/Creatinine Ratio 16.3
[2018-07-21 08:00] VITALS: BP 131/57
[2018-07-21] MEDS: PHENYTOIN 100 MG/4 ML SUSP PO SCH (09:52)
[2018-07-21] MEDS: ENOXAPARIN SOD 40 MG/0.4 ML SYRINGE SC SCH (09:52)
[2018-07-21] MEDS: CLOPIDOGREL BISULFATE 75 MG TAB PO SCH (09:52)
[2018-07-21] MEDS: ASPirin 81 mg TAB PO SCH (09:54)
[2018-07-21] MEDS: FAMOTIDINE 20 MG TAB PO SCH (09:54)
[2018-07-21] MEDS: amLODIPine BESYLATE 5 MG TAB PO SCH (09:55)
[2018-07-21] MEDS: FLUoxetine HCL 20 MG CAP PO SCH (09:55)
[2018-07-21] MEDS: CARVEDILOL 3.125 MG TAB PO SCH (09:55)
[2018-07-21] MEDS ORDERED: RAMIPRIL 2.5 MG CAP PO SCH (10:15)
[2018-07-21 11:49] VITALS: BP 131/57
== END 2018-07-21 15:20 | disposition home or self-care (01) | DRG 198 ==
LOC: EDBD 16:52 → ER 16:52 → TELE 16:53 → TELE-EAST 07-18 08:47 → TELE-CENTR 07-21 04:15
PROVIDERS: ADMIT Nurse Practitioner; ATTEND Internal Medicine
DX: I25.10 Atherosclerotic heart disease of native coronary artery without angina pectoris (principal); E44.0 Moderate protein-calorie malnutrition; E11.22 Type 2 diabetes mellitus with diabetic chronic kidney disease; I08.3 Combined rheumatic disorders of mitral, aortic and tricuspid valves; I42.9 Cardiomyopathy, unspecified; N39.0 Urinary tract infection, site not specified; N18.3 Chronic kidney disease, stage 3 (moderate); E78.5 Hyperlipidemia, unspecified; F03.90 Unspecified dementia, unspecified severity, without behavioral disturbance, psychotic disturbance, mood disturbance, and anxiety; I13.0 Hypertensive heart and chronic kidney disease with heart failure and stage 1 through stage 4 chronic kidney disease, or unspecified chronic kidney disease; I50.9 Heart failure, unspecified; I70.0 Atherosclerosis of aorta; Z83.3 Family history of diabetes mellitus; I25.2 Old myocardial infarction; Z82.49 Family history of ischemic heart disease and other diseases of the circulatory system; Z86.73 Personal history of transient ischemic attack (TIA), and cerebral infarction without residual deficits; Z68.1 Body mass index [BMI] 19.9 or less, adult; I44.7 Left bundle-branch block, unspecified
CPT/HCPCS: 36415; 71045; 80048; 80053; 81001; 83735; 83880; 84484; 85025; 85610; 85730; 87493; 96361; 96374; 99291; G0378; J0696

== ENCOUNTER 2018-08-28 23:10 | Inpatient (IN) | payer MEDICARE, MEDICAID ==
[~2018-08-28] VITALS: Ht 30.5 cm; Wt 45.7 kg
[~2018-08-28 23:10] MED LIST changes: -RAMI2.5T
[2018-08-29 00:03] LABS: Basophils # (auto) 0.1 uL; Basophils % (auto) 0.8 % (0.0-2.0); Eosinophils # (auto) 0.2 uL; Eosinophils % (auto) 2.3 % (0.0-7.0); Hematocrit 32.6 % (36.0-46.0); Hemoglobin 10.5 g/dL (12.2-16.2); Lymphocytes # (auto) 1.8 uL; Lymphocytes % (auto) 18.1 % (10.0-50.0); Mean Corpuscular Hemoglobin 26.6 pg (28.0-32.0); Mean Corpuscular Hgb Conc. 32.1 g/dL (32.0-36.0); Mean Corpuscular Volume 82.7 fL (80.0-100.0); Monocytes # (auto) 1.2 uL; Monocytes % (auto) 11.5 % (0.0-12.0); Neutrophils # (auto) 6.8 uL; Neutrophils % (auto) 67.3 % (37.0-80.0); Platelet Count (auto) 630 10^3/uL (140-450); Red Blood Cells 3.95 10^6/uL (4.0-5.20); Red Cell Distribution Width 16.9 % (11.8-14.3); White Blood Cell 10.1 10^3/uL (4.4-10.8)
[2018-08-29 00:22] LABS: INR 0.94 (0.9-1.15); Partial Thromboplastin Time 24.3 sec (23.78-33.04); Prothrombin Time 10.1 sec (9.27-12.13)
[2018-08-29 00:26] LABS: Alanine Aminotransferase 17 U/L (13-56); Albumin 2.6 g/dL (3.4-5.0); Anion Gap 5 (5-15); Aspartate Aminotransferase 18 U/L (15-37); BUN/Creatinine Ratio 20.4; Blood Urea Nitrogen 22 mg/dL (7-18); Calcium 7.9 mg/dL (8.5-10.1); Carbon Dioxide 25 mmol/L (21-32); Chloride 113 mmol/L (98-107); GFR African American 63 mL/min; GFR Non-African American 52 mL/min; Glucose 141 mg/dL (74-106); Magnesium 2.1 mg/dL (1.6-2.6); Potassium 4.4 mmol/L (3.5-5.1); Sodium 143 mmol/L (136-145)
[2018-08-29 00:31] LABS: Alkaline Phosphatase 54 U/L (45-117); Bilirubin, Total 0.2 mg/dL (0.2-1.0); Total Protein 6.7 g/dL (6.4-8.2)
[2018-08-29] MEDS ORDERED: FUROSEMIDE 20 MG/2 ML VIAL IV ONE (02:15)
[2018-08-29] MEDS ORDERED: ONDANSETRON HCL 4 MG/2 ML VIAL IV PRN (05:00)
[2018-08-29] MEDS ORDERED: HYDROcodone-ACET 5/325MG TAB PO PRN (05:00)
[2018-08-29] MEDS ORDERED: ACETAMINOPHEN 500 MG TAB PO PRN (05:00)
[2018-08-29 05:19] LABS: Urine Bacteria FEW /hpf (None Seen); Urine Blood Negative /uL (Negative); Urine Hyaline Cast FEW /lpf (0 - 2); Urine Specific Gravity 1.008 (1.001-1.035); Urine WBC 3 /hpf (0 - 5)
[2018-08-29] MEDS ORDERED: ALBUTEROL SULF 2.5 MG/0.5ML(0.5%) NEB SOLN ONE (05:23)
[2018-08-29] MEDS ORDERED: IPRATROPIUM BROM 0.5 MG/2.5ML INH SOL ONE (05:24)
[2018-08-29 05:43] LABS: Calcium 8.1 mg/dL (8.5-10.1); Potassium 4.2 mmol/L (3.5-5.1)
[2018-08-29 05:53] LABS: Basophils # (auto) 0.1 uL; Eosinophils # (auto) 0.2 uL; Eosinophils % (auto) 1.9 % (0.0-7.0); Hematocrit 30.7 % (36.0-46.0); Lymphocytes # (auto) 2.1 uL; Lymphocytes % (auto) 23.8 % (10.0-50.0); Mean Corpuscular Hemoglobin 26.9 pg (28.0-32.0); Mean Corpuscular Hgb Conc. 32.6 g/dL (32.0-36.0); Mean Corpuscular Volume 82.5 fL (80.0-100.0); Monocytes # (auto) 0.9 uL; Monocytes % (auto) 10.2 % (0.0-12.0); Neutrophils # (auto) 5.6 uL; Neutrophils % (auto) 63.1 % (37.0-80.0); Nucleated Red Blood Cells % 0.1 %; Platelet Count (auto) 593 10^3/uL (140-450); Red Blood Cells 3.73 10^6/uL (4.0-5.20); Red Cell Distribution Width 16.8 % (11.8-14.3); White Blood Cell 8.8 10^3/uL (4.4-10.8)
[2018-08-29] MEDS: IPRATROPIUM BROM 0.5 MG/2.5ML INH SOL NEB SCH ×5 (06:45→22:28)
[2018-08-29] MEDS: ALBUTEROL SULF 2.5 MG/0.5ML(0.5%) NEB SOLN NEB SCH ×5 (06:45→22:28)
[2018-08-29 09:31] VITALS: BP 133/60
[2018-08-29] MEDS ORDERED: ASPirin-EC 81 mg tab PO SCH (10:00)
[2018-08-29] MEDS: LISINOPRIL 5 MG TAB PO SCH (10:03)
[2018-08-29] MEDS: CARVEDILOL 3.125 MG TAB PO SCH ×2 (10:05→22:27)
[2018-08-29] MEDS: FUROSEMIDE 20 MG TAB PO SCH (10:06)
[2018-08-29] MEDS ORDERED: OMEP20TA PO (10:44)
[2018-08-29 10:47] VITALS: BP 133/60
[2018-08-29 13:19] VITALS: BP 109/55
[2018-08-29 15:32] VITALS: BP 109/55
[2018-08-29 17:42] VITALS: BP 120/56
[2018-08-29 22:00] VITALS: BP 136/64
[2018-08-30] MEDS: IPRATROPIUM BROM 0.5 MG/2.5ML INH SOL NEB SCH ×6 (02:10→22:38)
[2018-08-30] MEDS: ALBUTEROL SULF 2.5 MG/0.5ML(0.5%) NEB SOLN NEB SCH ×6 (02:10→22:38)
[2018-08-30 05:25] VITALS: BP 145/72
[2018-08-30 08:00] VITALS: BP 150/65
[2018-08-30] MEDS ORDERED: CLOPIDOGREL BISULFATE 75 MG TAB PO SCH (10:00)
[2018-08-30] MEDS: ENOXAPARIN SOD 30 MG/0.3 ML SYRINGE SC SCH (10:20)
[2018-08-30] MEDS: FUROSEMIDE 20 MG TAB PO SCH (10:21)
[2018-08-30] MEDS: LISINOPRIL 5 MG TAB PO SCH (10:21)
[2018-08-30] MEDS: PANTOPRAZOLE 40 MG TAB PO SCH (10:21)
[2018-08-30] MEDS: CARVEDILOL 3.125 MG TAB PO SCH ×2 (10:23→22:32)
[2018-08-30 12:18] VITALS: BP 133/66
[2018-08-30 13:24] LABS: Basophils # (auto) 0.1 uL; Eosinophils # (auto) 0.2 uL; Lymphocytes # (auto) 1.5 uL; Mean Corpuscular Hgb Conc. 31.8 g/dL (32.0-36.0); Monocytes # (auto) 0.7 uL; Nucleated Red Blood Cells % 0.1 %
[2018-08-30 13:26] LABS: Basophils % (auto) 0.9 % (0.0-2.0); Eosinophils % (auto) 1.8 % (0.0-7.0); Hematocrit 37.6 % (36.0-46.0); Hemoglobin 11.9 g/dL (12.2-16.2); Mean Corpuscular Hemoglobin 26.5 pg (28.0-32.0); Mean Corpuscular Volume 83.5 fL (80.0-100.0); Monocytes % (auto) 7.8 % (0.0-12.0); Neutrophils # (auto) 6.3 uL; Neutrophils % (auto) 72.5 % (37.0-80.0); Platelet Count (auto) 626 10^3/uL (140-450); Red Cell Distribution Width 16.4 % (11.8-14.3); White Blood Cell 8.7 10^3/uL (4.4-10.8)
[2018-08-30 14:24] LABS: Anion Gap 4 (5-15); Blood Urea Nitrogen 19 mg/dL (7-18); Calcium 8.9 mg/dL (8.5-10.1); Carbon Dioxide 27 mmol/L (21-32); Chloride 107 mmol/L (98-107); Glucose 110 mg/dL (74-106); Potassium 4.3 mmol/L (3.5-5.1); Sodium 138 mmol/L (136-145)
[2018-08-30 14:28] LABS: BUN/Creatinine Ratio 22.1; Cholesterol 165 mg/dL (< 200); GFR African American 81 mL/min; GFR Non-African American 67 mL/min; HDL Cholesterol 44 mg/dL (40-59); LDL Cholesterol 106 mg/dL (< 100); Triglycerides 111 mg/dL (< 150)
[2018-08-30 16:48] VITALS: BP 155/74
[2018-08-30] MEDS: Ensure Enlive Chocolate 8oz Bottle PO SCH (18:22)
[2018-08-30 22:03] VITALS: BP 153/61
[2018-08-30] MEDS: ASCORBIC ACID 500 MG TAB PO SCH (22:32)
[2018-08-31] MEDS: IPRATROPIUM BROM 0.5 MG/2.5ML INH SOL NEB SCH ×6 (02:17→22:39)
[2018-08-31] MEDS: ALBUTEROL SULF 2.5 MG/0.5ML(0.5%) NEB SOLN NEB SCH ×6 (02:17→22:39)
[2018-08-31 05:04] VITALS: BP 122/61
[2018-08-31 06:45] LABS: BUN/Creatinine Ratio 22.5; Calcium 8.5 mg/dL (8.5-10.1); Potassium 3.5 mmol/L (3.5-5.1)
[2018-08-31] MEDS: Ensure Enlive Chocolate 8oz Bottle PO SCH ×3 (08:33→18:39)
[2018-08-31 09:00] VITALS: BP 110/57
[2018-08-31] MEDS: CARVEDILOL 3.125 MG TAB PO SCH ×2 (10:00→22:04)
[2018-08-31] MEDS: MULTIPLE VITAMINS W/ MINERALS TAB PO SCH (10:52)
[2018-08-31] MEDS: ASCORBIC ACID 500 MG TAB PO SCH ×2 (10:52→22:04)
[2018-08-31] MEDS: FUROSEMIDE 20 MG TAB PO SCH (10:52)
[2018-08-31] MEDS: PANTOPRAZOLE 40 MG TAB PO SCH (10:52)
[2018-08-31] MEDS: LISINOPRIL 5 MG TAB PO SCH (10:52)
[2018-08-31] MEDS: ENOXAPARIN SOD 30 MG/0.3 ML SYRINGE SC SCH (10:53)
[2018-08-31 13:00] VITALS: BP 114/64
[2018-08-31] MEDS ORDERED: cefTRIAXone 1GM/50ML D5W 50 ML IV ONE (13:00)
[2018-08-31] MEDS ORDERED: ASPirin-EC 81 mg tab PO ONE (13:00)
[2018-08-31 17:00] VITALS: BP 131/67
[2018-08-31 22:00] VITALS: BP 118/52
[2018-08-31] MEDS ORDERED: ATORVASTATIN 20 MG TAB PO SCH (22:00)
[2018-08-31] MEDS: PHENYTOIN SODIUM 100 MG CAP PO SCH (22:03)
[2018-09-01 05:00] VITALS: BP 130/52
[2018-09-01] MEDS: IPRATROPIUM BROM 0.5 MG/2.5ML INH SOL NEB SCH ×3 (06:00→14:00)
[2018-09-01] MEDS: ALBUTEROL SULF 2.5 MG/0.5ML(0.5%) NEB SOLN NEB SCH ×3 (06:00→14:00)
[2018-09-01 07:11] LABS: Basophils # (auto) 0.1 uL; Basophils % (auto) 1.1 % (0.0-2.0); Mean Corpuscular Volume 82.8 fL (80.0-100.0); Monocytes # (auto) 0.8 uL; Neutrophils % (auto) 54.8 % (37.0-80.0)
[2018-09-01 07:13] LABS: Eosinophils # (auto) 0.4 uL; Eosinophils % (auto) 6.6 % (0.0-7.0); Hematocrit 31.4 % (36.0-46.0); Hemoglobin 10.2 g/dL (12.2-16.2); Lymphocytes # (auto) 1.7 uL; Lymphocytes % (auto) 25.6 % (10.0-50.0); Mean Corpuscular Hemoglobin 26.8 pg (28.0-32.0); Mean Corpuscular Hgb Conc. 32.3 g/dL (32.0-36.0); Monocytes % (auto) 11.9 % (0.0-12.0); Neutrophils # (auto) 3.7 uL; Nucleated Red Blood Cells % 0.1 %; Platelet Count (auto) 490 10^3/uL (140-450); Red Blood Cells 3.79 10^6/uL (4.0-5.20); Red Cell Distribution Width 16.1 % (11.8-14.3); White Blood Cell 6.8 10^3/uL (4.4-10.8)
[2018-09-01 07:32] LABS: BUN/Creatinine Ratio 18.4; Calcium 8.4 mg/dL (8.5-10.1); Magnesium 2.4 mg/dL (1.6-2.6); Potassium 3.8 mmol/L (3.5-5.1)
[2018-09-01] MEDS ORDERED: cefTRIAXone 1GM/50ML D5W 50 ML IV SCH (09:00)
[2018-09-01] MEDS: FUROSEMIDE 20 MG TAB PO SCH (09:40)
[2018-09-01] MEDS: ASCORBIC ACID 500 MG TAB PO SCH (09:41)
[2018-09-01] MEDS: LISINOPRIL 5 MG TAB PO SCH (09:43)
[2018-09-01] MEDS: PHENYTOIN SODIUM 100 MG CAP PO SCH (09:44)
[2018-09-01] MEDS: MULTIPLE VITAMINS W/ MINERALS TAB PO SCH (09:45)
[2018-09-01] MEDS: CARVEDILOL 3.125 MG TAB PO SCH (09:46)
[2018-09-01] MEDS: PANTOPRAZOLE 40 MG TAB PO SCH (09:46)
[2018-09-01] MEDS: Ensure Enlive Chocolate 8oz Bottle PO SCH ×2 (09:48→17:19)
[2018-09-01] MEDS: ENOXAPARIN SOD 30 MG/0.3 ML SYRINGE SC SCH (09:54)
[2018-09-01] MEDS ORDERED: ASPirin-EC 81 mg tab PO SCH (10:00)
[2018-09-01] MEDS ORDERED: FLUoxetine HCL 20 MG CAP PO SCH (10:00)
[2018-09-01] MEDS ORDERED: FUR20T PO (12:07)
[2018-09-01] MEDS ORDERED: NITR100C44 PO (12:07)
[2018-09-01] MEDS ORDERED: ASP81EC PO (12:07)
[2018-09-01] MEDS ORDERED: LISI-275 PO (12:07)
[2018-09-01] MEDS ORDERED: CAR3125T PO (12:07)
[2018-09-01] MEDS ORDERED: HYDROcodone-ACET 5/325MG TAB PO PRN (12:15)
[2018-09-01 12:29] VITALS: BP 133/61
[2018-09-01 13:00] VITALS: BP 148/74
[2018-09-01 16:00] VITALS: BP 158/76
[2018-09-01] MEDS ORDERED: NITROFURANTOIN (MONO) 100 mg CAP PO SCH (22:00)
== END 2018-09-01 17:00 | disposition hospice, home (50) | DRG 682 ==
LOC: EDBD 23:10 → ER 23:15 → TELE 08-29 04:50 → TELE-EAST 08-29 09:26
PROVIDERS: ADMIT Nurse Practitioner Family; ATTEND Internal Medicine
DX: N17.0 Acute kidney failure with tubular necrosis (principal); J96.00 Acute respiratory failure, unspecified whether with hypoxia or hypercapnia; E43 Unspecified severe protein-calorie malnutrition; I50.43 Acute on chronic combined systolic (congestive) and diastolic (congestive) heart failure; N39.0 Urinary tract infection, site not specified; I42.9 Cardiomyopathy, unspecified; I11.0 Hypertensive heart disease with heart failure; F41.9 Anxiety disorder, unspecified; D63.8 Anemia in other chronic diseases classified elsewhere; I25.10 Atherosclerotic heart disease of native coronary artery without angina pectoris; E78.00 Pure hypercholesterolemia, unspecified; E11.65 Type 2 diabetes mellitus with hyperglycemia; B96.20 Unspecified Escherichia coli [E. coli] as the cause of diseases classified elsewhere; E78.5 Hyperlipidemia, unspecified; F03.90 Unspecified dementia, unspecified severity, without behavioral disturbance, psychotic disturbance, mood disturbance, and anxiety; G40.909 Epilepsy, unspecified, not intractable, without status epilepticus; Z82.49 Family history of ischemic heart disease and other diseases of the circulatory system; Z86.73 Personal history of transient ischemic attack (TIA), and cerebral infarction without residual deficits; Z95.5 Presence of coronary angioplasty implant and graft; Z83.3 Family history of diabetes mellitus
CPT/HCPCS: 36415; 71045; 80048; 80053; 80061; 81001; 83735; 83880; 84443; 84484; 85025; 85379; 85610; 85730; 87081; 87086; 87088; 87186; 93005; 93306; 94640; 94761; 96374; 97110; 97163; 97530; G0378; J0696